=== PATIENT | male | born 1950 | race Two or more races ===

== ENCOUNTER 2025-06-13 06:40 | Day surgery (SDC) | payer MEDICARE, OTHER, SELFPAY ==
[2025-06-12 16:17] VITALS: BMI 29.2
[2025-06-13] VITALS (13 sets, daily range): BP systolic 151–205; BP diastolic 81–108; BMI 29.2
[2025-06-13] MEDS: LOW STRENGTH ASPIRIN 81 MG PO (08:40)
[2025-06-13] MEDS: NSS 293 ML IV (08:41)
--- NOTE | 2025-06-13 11:00 | CONSULT.STRU ---
Consultation
-
Date/Time Consultation Requested: 06/13/2025
Date/Time Consultation Performed: 06/13/2025
Requesting Provider: Trey Whitney MD
Performing Provider: Kacey Mena DNP, CRNP
Reason for Consultation: /TAVR
Patient History
Physicians
Family Physician: Dominga Lanza MD
Outpatient Brisket Puller: Trey Whitney MD
Primary Brisket Puller: Trey Whitney MD
History of Present Illness
Mr. Lynch is a very pleasant 74 yom that with a past medical history significant for aortic stenosis, CAD, HTN, expressive aphasia, and arthritis. His echocardiogram from 03/26/2025 is notable for EF 55%, AV MG 45, GIOVANY 1.0, DI 0.23, pk jerrica 4.14,
mild AI, no MR, Trace TR, PAP 28. From a symptomatology standpoint, Mr. Lynch describes fatigue and ADDISON that has progressively gotten worse over the last year. Discussed the pathophysiology and treatment options of including SAVR and TAVR.
Patient also has significant CAD and explained the plan to return for PCI. Explained the evaluation process comprising of CT scan, CT surgical consult, dental clearance, and a heart team discussion. TAVR booklet, prescriptions, appointments, and
contact information given to patient and spouse. Allowed for and answered questions at bedside.
Past Medical History
Past Medical History: CVA/TIA (?CVA (hx of expressive aphasia)), HTN, Valvular Disease (Aortic stenosis) and Other (hyperlipidemia, vertigo, diverticulosis, arthritis)
Past Surgical History
Past Surgical History: Cholecystectomy and Orthopedic (lumbar, carpal tunnel)
Dental History
Dr. Juancarlos Ochoa--Pt UTD--form faxed
Family History
Mother: N/A
Father: N/A
Social History
Alcohol: None
Drug: None
Tobacco: Non-Smoker
Personal:
Living: With Spouse
Employment: Retired
Allergies
Allergy/AdvReac Type Severity Reaction Status Date / Time
latex Allergy Severe Pharmacy Verified 06/13/25 07:54
to Review
Penicillins Allergy Mild Rash Verified 06/13/25 07:54
Home Medications
�Medication �Instructions �Recorded �Confirmed �Type
aspirin 81 mg tablet 81 mg PO DAILY 06/12/25 06/13/25 History
atorvastatin 80 mg tablet 80 mg PO QPM 06/12/25 06/13/25 History
cyanocobalamin (vitamin B-12) 1,000 mcg PO DAILY 06/12/25 06/13/25 History
1,000 mcg tablet
diltiazem HCl 240 mg capsule,24 240 mg PO DAILY 06/12/25 06/13/25 History
hr,extended release
lisinopril 40 mg tablet 40 mg PO DAILY 06/12/25 06/13/25 History
loperamide 2 mg tablet 2 mg PO Q48H 06/12/25 06/13/25 History
multivitamin 1 tab PO QPM 06/12/25 06/13/25 History
omega [id number] oil 600 1 cap PO QPM 06/12/25 06/13/25 History
mg-20 mg-500 mcg-800 mcg capsule
clopidogrel 75 mg tablet 75 mg PO DAILY #90 tabs 06/13/25 Rx
sour yang extract 1,000 mg 1,200 mg PO DAILY Gout 06/13/25 06/13/25 History
capsule (Tart Yang Extract)
STS%
STS %: 1.64
Review of Systems
-
History Source: Patient and Family
General: Reports Fatigue
HEENT: Reports No Symptoms
Respiratory: Reports SOB and ADDISON
Cardiac: Reports No Symptoms
Abdomen/GI: Reports No Symptoms
: Reports No Symptoms
Musculoskeletal: Reports No Symptoms
Skin: Reports No Symptoms
Neurological: Reports Dizzy
Vascular: Reports No Symptoms
Physical Exam
Vital Signs
Temp 97.9 F 06/13/25 07:51
Temp route: Oral 06/13/25 07:42
Pulse 64 06/13/25 09:50
Blood pressure 155/88 06/13/25 07:59
Blood pressure extremity used: Left upper arm 06/13/25 07:42
Position: Sitting 06/13/25 07:42
MAP (cuff-Myriam Monitor) 110 06/13/25 07:59
SaO2 97 06/13/25 09:50
Oxygen Mode of Delivery Room air 06/13/25 07:42
Can the patient verbally communicate their pain? Yes 06/13/25 07:42
Actual Weight 97.5 kg 06/13/25 07:53
Body Mass Index (BMI) 29.2 06/13/25 07:53
Labs
05/21/2025
HH: 14.3/43.4
WBC: 6.29
Plt: 195K
BUN/CR: 22/1.13
GFR>60
Diagnostic Studies
Procedure Type:�Isolated AVR
Perioperative Outcome Estimate %
Operative Mortality 1.64%
Morbidity & Mortality 7.56%
Stroke 1.68%
Renal Failure 1.03%
Reoperation 3.64%
Prolonged Ventilation 3.44%
Deep Sternal Wound Infection 0.047%
Long Hospital Stay (>14 days) 2.44%
Short Hospital Stay (<6 days)* 52.5%
ECHOCARDIOGRAM 03/26/2025
EF 55%
MV: normal is structure, no MR, no MS
AV trileaflet, Pk jerrica 4.14, MG 45, LVOT diameter 2.4, GIOVANY 1.0, DI 0.23, SVI 52, moderate AI
TV PAP 28, trace TR
Exam
General: Well Developed, Well Nourished, No Apparent Distress and Comfortable
HEENT: Normocephalic
Neck: Trachea Midline
Respiratory: Clear
Cardiac: S1/S2, Regular Rhythm and Murmur (III/ JAY)
GI: Soft, Non Tender and Non Distended
Rectal: Deferred by Provider
Skin: Warm and Dry
Neuro: Awake, Alert, Oriented and AO x 3
Psych: Calm
Assessment / Plan
-
Aortic Stenosis
Continue TAVR evaluation
Continue aspirin and plavix
TAVR CT Scan (06/25)
CT surgical consult ( 06/27)
Frailty testing and [id number] at consult
Dental clearance (form faxed)
Heart team discussion
Data Reviewed
-
EKG: Tracing Personally Visualized and interpreted and Report Reviewed by me (NSR)
Cruise Director: Report Reviewed by me and Discussed with Physician
Echo: Report Reviewed by me and Discussed with Physician
Labs: Labs Reviewed by me
Old Records: Reviewed
Total Time Spent with Patient (in minutes): 45
[2025-06-13] MEDS: NSS 1000 IV (11:02)
[2025-06-13] MEDS: CARDIZEM CD 240 MG PO (11:42)
--- NOTE | 2025-06-13 14:39 | ITS.CL.CATH ---
[facility] - Catheterization
Cardiac Catheterization
Procedure Report:
LEFT HEART CATHETERIZATION
Date of Procedure: June 13, 2025
Procedures performed:
1: Coronary angiography
2: Left ventricular hemodynamic assessment
Primary Care Physician: Dominga Canchola PA-C
Primary Liquid Waste Treatment Plant Operator: Myself
INDICATION: The patient is a 74-year-old man with a past medical history significant for hypertension, aortic stenosis, hyperlipidemia, and a new expressive aphasia which has developed in the past year without evidence of stroke on MRI recently who
is referred for cardiac catheterization in light of progressive exertional dyspnea and an echocardiogram which now shows severe aortic stenosis with a mean gradient of 45 mmHg on echo done 03/26/2025.
ACCESS: The patient was prepped and draped in usual sterile fashion. A 6 Swiss sheath was placed in the right radial artery using the Seldinger over the wire technique.
HEMODYNAMIC FINDINGS (mmHg):
LV(s/d,EDP): 207/12, 23
Ao(s/d,m): 165/81, 116
Mean aortic valve gradient on pullback: 45 mmHg
ANGIOGRAPHIC FINDINGS:
Single-plane Left Ventriculography in BECK Projection: Not done. Normal LV systolic function by recent echo March 26, 2025.
Coronary Angiography:
Dominance: Left
Left Main: Large-caliber, very mild distal tapering with calcification.
Left Anterior Descending: The left anterior descending artery is calcified most prominently in the proximal portion but also in the mid vessel. The LAD itself is a medium caliber vessel that gives rise to 1 major diagonal branch. There is a 30 to
40% proximal stenosis. The major diagonal branch is widely patent. The mid LAD has a smooth 50 to 60% stenosis. The distal LAD has a smooth focal 50% stenosis. Despite this there is IRINA-3 flow in the LAD.
Left Circumflex: The left circumflex is a very large caliber dominant system that gives rise to a small OM1 and a large bifurcating OM 2 that are widely patent. The distal circumflex after OM 2 has a eccentric 80% stenosis. There are 2 small OM's
just beyond that lesion that are patent. The distal circumflex terminates in several small PLV branches and a relatively small dual posterior descending artery system. These distal vessels are widely patent with normal flow.
Right Coronary: The right coronary artery was difficult to cannulate from the radial approach. This vessel appears to be a nondominant vessel that does give rise to a vessel that feeds a portion of the inferoseptum. These small vessels are widely
patent.
Fluoroscopy Time (min): 5.4
Radiation Dose (mGy): 409
DAP (Gy.cm2): 21
Closure device: None. A TR band was applied for hemostasis at the right wrist.
Complications: None.
ASSESSMENT:
1: Two-vessel coronary artery disease with clear obstructive disease in the distal circumflex as described above. There is moderate disease in the LAD and I am not convinced that it is flow-limiting.
2: Severe aortic valvular stenosis.
CONCLUSIONS and RECOMMENDATIONS:
1: Proceed with TAVR evaluation. Assuming the planning CT imaging of the aortic valve permits us to consider TAVR, I suggest PCI of the circumflex prior to aortic valve intervention.
2: Continue medical therapy for coronary artery disease with close clinical follow-up as scheduled. I will start clopidogrel 75 mg daily and continue aspirin 81 mg daily in anticipation for likely PCI of the circumflex.
Trey Whitney M.D.
== END 2025-06-13 13:44 | disposition home or self-care (01) ==
LOC: CATH 06:40
PROVIDERS: ATTENDING PHYSICIAN Internal Medicine Interventional Cardiology; FAMILY PHYSICIAN Physician Assistant Medical
DX: I35.0 Nonrheumatic aortic (valve) stenosis (principal); I25.10 Atherosclerotic heart disease of native coronary artery without angina pectoris; R47.01 Aphasia; M19.90 Unspecified osteoarthritis, unspecified site; I10 Essential (primary) hypertension; R53.83 Other fatigue; R06.09 Other forms of dyspnea; Z90.49 Acquired absence of other specified parts of digestive tract; Z79.82 Long term (current) use of aspirin; Z79.02 Long term (current) use of antithrombotics/antiplatelets; E78.49 Other hyperlipidemia
CPT/HCPCS: 93458; C1769; C1894; Q9967

== ENCOUNTER → 2025-06-25 07:57 | Outpatient (REF) | payer MEDICARE, OTHER, SELFPAY | LOC: RAD 07:57 | PROVIDERS: ATTENDING PHYSICIAN Nurse Practitioner Acute Care; FAMILY PHYSICIAN Physician Assistant Medical | DX: I35.0 Nonrheumatic aortic (valve) stenosis (principal) | CPT/HCPCS: 74174; 75572; Q9967 ==

== ENCOUNTER 2025-07-11 10:09 | Day surgery (SDC) | payer MEDICARE, OTHER, SELFPAY ==
[2025-07-11] VITALS (12 sets, daily range): BP systolic 126–152; BP diastolic 71–94
[2025-07-11 12:16] LABS: Hematocrit 42.7 % (39.0-52.0); Hemoglobin 14.4 g/dL (13.0-18.0); Mean Corp Hgb Conc. 33.7 g/dL (33.0-37.0); Mean Corpuscular Volume 92.8 fL (80.0-94.0); Platelet Count 194 10^3/uL (130-400); Red Cell Dist. Width 13.5 % (11.5-14.5)
--- NOTE | 2025-07-11 12:32 | ITS.CL.ANGIO ---
Optical Instruments Supervisor - Angioplasty
Angioplasty
Procedure Report:
LEFT HEART CATHETERIZATION
Date of Procedure: July 11, 2025
Procedures performed:
1: Percutaneous coronary intervention of the left circumflex artery with placement of a 3.0 x 18 mm Adi drug-eluting stent
2: Physiologic lesion assessment of the left anterior descending artery
3: Percutaneous coronary intervention of 3 discrete lesions in the LAD with placement of a 2.5 x 30 mm Adi drug-eluting stent in the distal LAD, placement of a 2.75 x 18 mm Adi drug-eluting stent in the mid LAD, and placement of a 3.0 x 12 mm Dallas
drug-eluting stent postdilated at high-pressure with a 3.5 mm noncompliant balloon in the proximal LAD
Primary Care Physician: Dominga Canchola PA-C
Primary Muleser: Myself
INDICATION: The patient is a 74-year-old man with a past medical history significant for hypertension, aortic stenosis, hyperlipidemia, and a new expressive aphasia which has developed in the past year without evidence of stroke on MRI recently who
underwent cardiac catheterization on 06/13/2025 in light of progressive exertional dyspnea and an echocardiogram which now shows severe aortic stenosis with a mean gradient of 45 mmHg on echo done 03/26/2025. Cardiac cath showed obstructive
circumflex disease with borderline LAD disease. He underwent TAVR CT and was presented at the [facility] valve conference and the group decided to proceed with PCI of the circumflex with physiologic lesion assessment guided possible intervention on
the LAD today. He was pretreated with aspirin and Plavix.
ACCESS: The patient was prepped and draped in usual sterile fashion. A 6 Finnish sheath was placed in the right radial artery using the Seldinger over the wire technique.
HEMODYNAMIC FINDINGS (mmHg):
Ao(s/d,m): 143/79, 106
ANGIOGRAPHIC FINDINGS:
Please refer to full diagnostic study report from 06/13/2025 at [facility].
Percutaneous Coronary Intervention (PCI) of the left circumflex: The patient was pretreated with aspirin and Plavix. Unfractionated heparin was given. A 6 Finnish XB 3.5 guiding catheter was used to engage the left main. A Hi-Torque floppy wire
was advanced down the circumflex and the lesion was predilated with a 2.5 x 12 mm balloon. Next a 3.0 x 18 mm Adi drug-eluting stent was deployed at 18 daphne for 30 seconds.
FINAL RESULT: 0% in-stent residual stenosis with an outstanding angiographic result and normal distal flow in all vessels.
Physiologic lesion assessment of the left anterior descending artery: A Omni pressure wire was then directed down with the transducer in the apical normal-appearing portion of the LAD. The IFR was measured at 0.74 serially well below the ischemic
threshold. I elected to proceed with multilevel intervention as described below.
PCI of the LAD: Using the same 6 Finnish XB 3.5 guiding catheter, a Hi-Torque floppy wire was advanced down into the LAD. A 2.25 x 20 mm balloon was used to predilate the distal lesion. Next a 2.5 x 30 mm drug-eluting stent was deployed. The stent
was postdilated with a 2.5 mm diameter noncompliant balloon inflated to 16 daphne in a distal to proximal fashion taking care to stay within the stented margins. The same noncompliant balloon was then used to predilate the mid LAD lesion. Next a 2.75
x 18 mm Dallas was deployed at the mid lesion at 16 daphne for 30 seconds. Finally primary stenting of the proximal lesion was performed with a 3.0 x 12 mm Dallas drug-eluting stent. The proximal stent was postdilated with a 3.5 x 8 mm noncompliant
balloon at 16 daphne. This was also done in a distal to proximal fashion taking care to stay within the stented margins.
FINAL RESULT: 0% in-stent residual stenosis in the proximal, mid, and distal LAD stents with an outstanding angiographic result and normal distal flow in all vessels.
Fluoroscopy Time (min): 16
Radiation Dose (mGy): 1196
DAP (Gy.cm2): 81
Closure device: None. A TR band was applied for hemostasis at the right wrist.
Complications: None.
ASSESSMENT:
1: Successful PCI of the circumflex and 3 distinct LAD lesions with placement of drug-eluting stents as described above.
CONCLUSIONS and RECOMMENDATIONS:
1: Routine post PCI medical therapy and monitoring. The patient will remain on dual antiplatelet therapy with aspirin 81 mg daily and clopidogrel 75 mg daily.
2: Plan for TAVR in approximately 1 month.
3: Close clinical follow-up as scheduled.
Trey Whitney M.D.
[2025-07-11 13:03] LABS: ACT-LR - POC 397 Seconds (116-155)
[2025-07-11 13:28] LABS: ACT-LR - POC > 397 Seconds (116-155)
[2025-07-11 14:42] LABS: ACT-LR - POC > 397 Seconds (116-155)
--- NOTE | 2025-07-11 15:04 | PTCARENOTE ---
Received pt from [facility] into 2244. Pt is AAOx3 + expressive asphasia at baseline. SR on the monitor VSS TR band in place pulse ox 96%. Pt instructed on bedrest and rt arm restriction. EKG done. is at bedside and updated with plan of care. Call
man within reach.
--- NOTE | 2025-07-11 15:08 | CM ---
Reviewed chart. Met with and Mrs. Lynch to review discharge plans. He states prior to admission he resides with his spouse in a two story home with six steps to enter. He states he has a first floor set-up. He states prior to admission he was
independent with ambulation and adls. He states he does not have any DME in the home. He states he has a prescription plan and uses [facility]. The discharge plan is to return home with his spouse when medically stable.
[2025-07-11] MEDS: LIPITOR 80 MG PO (17:19)
[2025-07-11] MEDS: NSS 1000 IV (17:19)
--- NOTE | 2025-07-11 18:16 | PTCARENOTE ---
Rt Radial TR band removed without complications. Pt ambulated to bathroom with standby assist.
--- NOTE | 2025-07-11 21:33 | PTCARENOTE ---
Rec'd pt at change of shift. Pt AAO*3, VSS, and SR on TELE monitor with HR in the 70's. Pt denies any acute pain or discomfort but reports chronic back and neck pain. Pt refused Tylenol or hot/cold therapy. Pt with R radial site CDI and pt aware
of activity restrictions. Pt now resting with call man in reach. See MAR and flowchart for full pt care and assessment.
[2025-07-11] MEDS: MELATONIN 5 MG PO (23:20)
--- NOTE | 2025-07-11 23:39 | PTCARENOTE ---
pt requested something to help sleep and reported feeling restless. CT JEFFRY linda notified via tigertext and rec'd order for one time melatonin. Melatonin given to pt as ordered. Pt now resting with call man in reach.
[2025-07-12 03:48] VITALS: BP 152/80
[2025-07-12 04:36] LABS: Hematocrit 38.8 % (39.0-52.0); Hemoglobin 13.4 g/dL (13.0-18.0); Mean Corp Hgb Conc. 34.5 g/dL (33.0-37.0); Mean Corpuscular Volume 90.7 fL (80.0-94.0); Platelet Count 177 10^3/uL (130-400); Red Cell Dist. Width 13.6 % (11.5-14.5)
[2025-07-12 05:05] LABS: Blood Urea Nitrogen 22 mg/dl (9-20); Calcium 8.9 mg/dl (8.4-10.2); Carbon Dioxide 25 mmol/L (22-30); Chloride 106 mmol/L (98-107); Glucose 87 mg/dl (70-99); HDL Cholesterol 41 mg/dl; LDL Cholesterol, Calculated 80 mg/dl; Potassium 4.2 mmol/L (3.5-5.1); Sodium 135 mmol/L (135-145); Very Low Density Lipoprotein 13 mg/dl (0-30); eGFR > 60.00
[2025-07-12 07:02] VITALS: BP 151/90
[2025-07-12] MEDS: LOW STRENGTH ASPIRIN 81 MG PO (08:20)
[2025-07-12] MEDS: PLAVIX 75 MG PO (08:20)
[2025-07-12] MEDS: CARDIZEM CD 240 MG PO (08:21)
[2025-07-12 08:22] VITALS: BP 162/81
[2025-07-12] MEDS: ZESTRIL 40 MG PO (08:22)
--- NOTE | 2025-07-12 09:18 | W.PN.CARDCBS ---
Addendum entered and electronically signed by Altaf Tejada MD 07/12/25 18:01:
I saw and examined the patient on morning rounds.
The Pipeline Controller's note was reviewed and I agree with the note.
Comment: Briefly, 74-year-old man past medical history of multivessel CAD and severe aortic stenosis who underwent PCI 07/11/2025 with drug-eluting stents to the LAD as well as left circumflex.
At the time my evaluation he is resting comfortably out of bed to chair
No cardiac complaints
Right upper extremity neurovascularly intact
Plan to discharge on aspirin/plavix and high intensity statin
Tentative plan to return for TAVR next month
Discussed with patient's at bedside
Original Note:
Today's Communication / Plan
-
post PCI LCx and LAD
DAPT
TAVR planning continues outpt
home today
Impression / Plan
-
Primary Care Physician: Dominga Canchola PA-C
Primary Fan Blade Truer: Herman Whitney MD
74-year-old man with a past medical history significant for hypertension, aortic stenosis, hyperlipidemia, and a new expressive aphasia which has developed in the past year without evidence of stroke on MRI recently who underwent cardiac
catheterization on 06/13/2025 in light of progressive exertional dyspnea and an echocardiogram which now shows severe aortic stenosis with a mean gradient of 45 mmHg on echo done 03/26/2025. Cardiac cath showed obstructive circumflex disease with
borderline LAD disease. He underwent TAVR CT and was presented at the [facility] valve conference and the group decided to proceed with PCI of the circumflex with physiologic lesion assessment guided possible intervention on the LAD today. He was
pretreated with aspirin and Plavix.
Impression:
2V CAD by cath 06/13/25
Severe Aortic stenosis
post PCI LCx with placement of a 3.0 x 18 mm Adi RACHEL 07/11/25
post PCI LAD x3 (2.5 x 30mm [place] RACHEL distal LAD, 2.75 x 18 mm Adi RACHEL mid LAD, and 3.0 x 12 mm Adi RACHEL proximal LAD) 07/11/25
HTN
HLD
neurodegenerative disease
cognitive decline
Plan:
post PCI feels great
denies cp, sob
Rad site stable
tele SR with LAFB
DAPT ASA/Plavix
LDL 80 continue atorvastatin 80mg daily, to consider zetia or PCSK9i as outpt
Cardiac rehab c/s
f/u Dr. Whitney in 1 month
continue outpt w/u for TAVR poss in Aug
home today
Progress Note - Fan Blade Truer
Subjective
Date of Service: July 12, 2025
denies cp, sob
Objective
Labs:
07/12/25 03:55
07/12/25 03:55
Labs
Hgb 13.4 g/dL (13.0-18.0) 07/12/25 03:55
Hct 38.8 % (39.0-52.0) L 07/12/25 03:55
Plt Count 177 10^3/uL (130-400) 07/12/25 03:55
Sodium 135 mmol/L (135-145) 07/12/25 03:55
Potassium 4.2 mmol/L (3.5-5.1) 07/12/25 03:55
BUN 22 mg/dl (9-20) H 07/12/25 03:55
Creatinine 1.0 mg/dL (0.7-1.3) 07/12/25 03:55
Glucose 87 mg/dl (70-99) 07/12/25 03:55
Vital Signs and I&O:
Vital Signs
Temp Pulse Resp BP Pulse Ox
97.4 F 78 20 162/81 96
07/12/25 07:02 07/12/25 08:22 07/12/25 07:02 07/12/25 08:22 07/12/25 07:30
Vital Signs
Temp Pulse Resp BP Pulse Ox
97.4 F 78 20 162/81 96
07/12/25 07:02 07/12/25 08:22 07/12/25 07:02 07/12/25 08:22 07/12/25 07:30
Intake & Output
07/10/25 07/11/25 07/12/25 07/13/25
06:59 06:59 06:59 06:59
Intake Total 720 / 720
Output Total 1000 / 1000 400 / 400
Balance -280 / -280 -400 / -400
Physical Exam
Physical Exam
NAD< AOX3
S1, S2, RRR
CTAB, non labored, no wheeze
SNTND bsx4
R rad site c/d/i no HT
--- NOTE | 2025-07-12 09:41 | PTCARENOTE ---
Patient received at change of shift resting in the bed. Denies chest pain or pressure. Feels ready to go home. Right radial site with gauze and tegaderm C/D/I, radial pulse palpable. SR on telemetry. Oxygen saturation 96% on RA. Plan of care
discussed. Call man within reach. Care ongoing.
[2025-07-12 11:14] VITALS: BP 147/85
--- NOTE | 2025-07-12 11:20 | CM ---
Reviewed chart. Met with and Mrs. Lynch to review discharge plans. He states he is feeling well and hoping to go home soon. Prior to admission he resides with his spouse in a two story home with six steps to enter. He has a first floor set-up.
Prior to admission he was independent with ambulation and adls. He does not have any DME in the home. He has a prescription plan and uses [facility]. The discharge plan is to return home with his spouse when medically stable.
--- NOTE | 2025-07-12 12:23 | PTCARENOTE ---
Telemetry noted to be off patient. Spouse removed the manager monitoring from the patient stating they are being discharged. The patient did not want the monitor back on. Patient and spouse requesting the IV be removed as well, removed per patient
request. Care ongoing.
--- NOTE | 2025-07-12 13:16 | PTCARENOTE ---
Discharge instructions reviewed with patient and spouse. Patient's spouse removed industrial refrigeration mechanic. PIV INT removed. Patient and spouse verbalized understanding of instructions including follow-up appointments. Discharged with spouse driving
patient home. Patient left with all belongings and instructions.
--- NOTE | 2025-07-12 13:19 | W.DS.TRANS ---
DC Summary - Sliver Lapper
-
Discharge Instructions:
Discharge Diagnosis/Procedures Angioplasty with stent to left circumflex artery
and LAD x 3
Diet Low Cholesterol
Driving Restrictions No driving for 24 hours
Others Tests Your TAVR is scheduled for 08/16/2025. Your pre-
admission testing is scheduled for 08/07/2025 @
12:00
Other Services Cardiac Rehab
Instructions:
Stand-Alone Forms: DC Instructions- Cath/EP Lab
Changes to Home Medications: No
Discharge Medications:
DC Medications w/original date entered in Otterology
aspirin 81 mg tablet 81 mg PO DAILY 06/12/25
atorvastatin 80 mg tablet 80 mg PO QPM 06/12/25
cyanocobalamin (vitamin B-12) 1,000 mcg tablet 1,000 mcg PO DAILY 06/12/25
diltiazem HCl 240 mg capsule,24 hr,extended release 240 mg PO DAILY 06/12/25
lisinopril 40 mg tablet 40 mg PO DAILY 06/12/25
loperamide 2 mg tablet 2 mg PO Q48H 06/12/25
multivitamin 1 tab PO QPM 06/12/25
omega [id number] oil 600 mg-20 mg-500 mcg-800 mcg capsule 1 cap PO QPM 06/12/25
clopidogrel 75 mg tablet 75 mg PO DAILY #90 tabs 06/13/25
sour yang extract 1,000 mg capsule (Tart Yang Extract) 1,200 mg PO DAILY Gout 06/13/25
Home Medication Changes
Pending Results: No
== END 2025-07-12 13:29 | disposition home or self-care (01) ==
LOC: CATH 10:09
PROVIDERS: Nurse Practitioner Adult Health; ATTENDING PHYSICIAN Internal Medicine Interventional Cardiology; FAMILY PHYSICIAN Physician Assistant Medical
DX: I25.10 Atherosclerotic heart disease of native coronary artery without angina pectoris (principal); I35.0 Nonrheumatic aortic (valve) stenosis; I10 Essential (primary) hypertension; E78.5 Hyperlipidemia, unspecified; I44.4 Left anterior fascicular block; R47.01 Aphasia; Z79.02 Long term (current) use of antithrombotics/antiplatelets; Z79.82 Long term (current) use of aspirin; Z79.899 Other long term (current) drug therapy; Z95.5 Presence of coronary angioplasty implant and graft
CPT/HCPCS: 80048; 80061; 85027; 85347; 93005; 93799; C1725; C1769; C1874; C1887; C9600; Q9967